=== PATIENT | male | born 1975 | race African-American/Black ===

== ENCOUNTER 2018-01-10 17:45 | Emergency (ER) | payer OTHER ==
[~2018-01-10] VITALS: Ht 180.3 cm; Wt 123.8 kg
--- NOTE | ~2018-01-10 | EKG ---
[place] [address] [facility] [place] [address] ELECTROCARDIOGRAM REPORT Name: BENNY WEAVER [facility] [id number] Admission: 01/10/18 Attend Phys: Discharge: 01/10/18 Date of : 75 Report #: [id number] THIS REPORT FOR: //name// [facility] ED Test Date: 2018-01-10 Test Time: 18:40:26 Pat Name: BENNY WEAVER Department: Room: Gender: M [employer] Member: OLIVER : 1975 Requested By: Carmen Bradford Order Number: [id number] MD: Corbin Goldstein Measurements Intervals [place] Rate: 90 P: 52 FL: 153 QRS: 25 QRSD: 77 T: 27 QT: 354 QTc: 433 Interpretive Statements Sinus rhythm Nonspecific T wave abnormality No previous ECG available for comparison Electronically Signed On 01-11-2018 7:30:33 CDT by Corbin Goldstein [email or web address] <ELECTRONICALLY SIGNED> By: Corbin Goldstein MD, [facility] 01/11/18 0730 1840 1840 Corbin Goldstein MD, FACC /EPI
[2018-01-10] MEDS ORDERED: LISINOPRIL10 MG PO (17:58)
[2018-01-10 18:31] LABS: ABSOLUTE NEUTROPHILS 13.5 thou/uL (1.4-8.2); BASOPHILS 0.4 % (0.0-2.0); HEMATOCRIT 48.4 % (42.0-52.0); HEMOGLOBIN 16.4 gm/dL (14.0-18.0); LYMPHOCYTES 13.8 % (24.0-44.0); MCH 30.1 pg (26.0-34.0); MCHC 33.8 g/dL (28.0-37.0); MONOCYTES 7.8 % (1.0-8.0); PLATELET COUNT 272 thou/uL (150-400); RBC 5.44 mil/uL (4.50-6.00); WBC 17.3 thou/uL (4.0-11.0)
[2018-01-10 18:34] LABS: CALCIUM 9.3 mg/dL (8.5-10.1); CREATININE 1.6 mg/dL (0.7-1.3); POTASSIUM 3.9 mmol/L (3.5-5.1)
[2018-01-10 22:44] LABS: URINE BLOOD NEGATIVE (Negative); URINE CLARITY CLEAR; URINE COLOR YELLOW; URINE GLUCOSE-RANDOM* NEGATIVE (Negative); URINE KETONES NEGATIVE (Negative); URINE LEUKOCYTES-REFLEX NEGATIVE (Negative); URINE NITRITE-REFLEX NEGATIVE (Negative); URINE PROTEIN (DIPSTICK) 2+ (Negative); URINE SPECIFIC GRAVITY >= 1.030 (1.005-1.035); URINE UROBILINOGEN 0.2 E.U./dl (0.2-1.0)
[2018-01-10] MEDS ORDERED: ZPAK PO (22:50)
[2018-01-10 22:54] LABS: ICTOTEST (BILI CONFIRMATORY) Negative (Negative); URINE BILIRUBIN NEGATIVE (Negative)
[2018-01-10 23:01] LABS: HYALINE CASTS 0-3 Few /LPF (None Seen)
[2018-01-10 23:02] LABS: MUCUS >6 Heavy strn/LPF (None Seen); SQUAMOUS 0-3 Few /LPF (0-3); URINE WBC-REFLEX 0-5 Rare /HPF (0-5)
[2018-01-10 23:03] LABS: CRYSTALS None Seen /LPF (None Seen); URINE RBC 0-2 Rare /HPF (0-2)
[2018-01-10 23:34] VITALS: BP 154/94
== END 2018-01-10 23:34 | disposition home or self-care (01) ==
LOC: ER 17:45
PROVIDERS: Emergency Medicine
DX: R50.9 Fever, unspecified (principal); J06.9 Acute upper respiratory infection, unspecified; I10 Essential (primary) hypertension; F17.210 Nicotine dependence, cigarettes, uncomplicated